=== PATIENT | female | born 1995 | race Hispanic/Latino ===

== ENCOUNTER → 2020-01-29 | Outpatient (CLI) | payer BC | LOC: LAB.O 10:30 | PROVIDERS: ATTEND Nurse Practitioner Family | DX: R00.2 Palpitations (principal); R53.83 Other fatigue ==

== ENCOUNTER → 2020-02-21 | Outpatient (CLI) | payer BC | LOC: YCFC.O 15:26 | PROVIDERS: ATTEND Family Medicine | DX: Z20.828 Contact with and (suspected) exposure to other viral communicable diseases (principal) ==